=== PATIENT | female | born 1950 | race Caucasian/White ===

== ENCOUNTER 2017-05-03 08:24 | Observation (INO) | payer MEDICARE, SELFPAY ==
[2017-04-27 09:14] LABS: BASOPHILS 0.4 %; BASOPHILS ABSOLUTE 0.02 10/3/uL (0.0-0.16); EOSINOPHILS ABSOLUTE 0.17 10/3/uL (0.0-0.53); IMMATURE GRANULOCYTES 0.7 %; IMMATURE GRANULOCYTES ABSOLUTE 0.04 10/3/uL (0.0-0.11); LYMPHOCYTES 30.1 %; LYMPHOCYTES ABSOLUTE 1.69 10/3/uL (0.67-4.30); MEAN CORPUS HGB CONC 31.1 g/dL (32.0-36.0); MEAN CORPUSCULAR HEMOGLOB 28.5 pg (26.0-34.0); MONOCYTES 9.3 %; MONOCYTES ABSOLUTE 0.52 10/3/uL (0.21-1.20); NEUTROPHILS 56.5 %; NEUTROPHILS ABSOLUTE 3.18 10/3/uL (2.02-8.40); PLATELET COUNT 220 10/3/uL (150-400); RBC DISTRIBUTION WIDTH 15.5 % (12.0-16.0); WHITE BLOOD CELLS 5.6 10/3/uL (4.5-10.5)
[2017-04-27 09:15] LABS: HEMATOCRIT 35.4 % (36.0-48.0); MANUAL DIFF NO %; MEAN CORPUSCULAR VOLUME 91.7 fL (80-100); RED CELL COUNT 3.86 10/6/uL (4.0-5.6)
[2017-04-27 09:33] LABS: A/G RATIO 1.2 (0.7-1.9); ALKALINE PHOSPHATASE 84 U/L (45-117); CHLORIDE, SERUM 106 MMOL/L (96-112); CREATININE 0.94 MG/DL (0.55-1.02); GFR AFRICAN AMERICAN 73 ML/MIN (>=60); GFR NON AFRICAN AMERICAN 63 ML/MIN (>=60); GLUCOSE, SERUM 129 MG/DL (60-99); POTASSIUM, SERUM 4.5 MMOL/L (3.5-5.3); SGOT(AST) 10 U/L (5-40); SGPT(ALT) 11 U/L (5-65); SODIUM, SERUM 146 MMOL/L (135-148); TOTAL BILIRUBIN 0.4 MG/DL (0-1.2); TOTAL PROTEIN 6.7 G/DL (6.0-8.5)
[2017-04-27 09:34] LABS: ALBUMIN 3.7 G/DL (3.5-5.0); BUN (BLOOD UREA NITROGEN) 21 MG/DL (6-23); CO2 (CARBON DIOXIDE) 33 MMOL/L (24-34)
--- NOTE | ~2017-05-03 | OP ---
Record Of Operation [facility] [address] [place]. [address] NAME: HERMINIA DON PALMIRA : 50 STATUS : REG [facility] PAT#: [id number] AGE: 66 ADM/REG DATE : 05/03/17 MR#: [id number] REPORT SERV DATE: 05/03/17 DICTATED BY: GIANCARLO MORRISON III DATE: 05/03/17 REPORT STATUS : Draft TRANSCRIBED BY: MODDonald DATE: 05/03/17 DATE OF PROCEDURE: 05/03/2017 PREOPERATIVE DIAGNOSIS: Biopsy-proven invasive cancer of the right breast. POSTOPERATIVE DIAGNOSIS: Biopsy-proven invasive cancer of the right breast. PROCEDURE: Right simple mastectomy with sentinel lymph node biopsy. ANESTHESIA: General with intubation. COMPLICATIONS: None. ESTIMATED BLOOD LOSS: 10 mL. SPECIMENS: Right breast and sentinel lymph node from right axilla. DRAINS: Vishal-Hearn. LAP AND SPONGE COUNT: Correct x3. BRIEF HISTORY: This 66-year-old female recently was diagnosed with invasive cancer of the right breast. The patient had a palpable mass located in the subareolar region of the right breast. The patient was offered the option of breast conservative therapy versus mastectomy. The pros and cons, advantages and disadvantages of each were discussed with her. It was explained that these were equally acceptable alternatives. The patient choose to have a mastectomy. It was therefore felt that mastectomy with sentinel lymph node biopsy, possible axillary dissection if the sentinel lymph node was positive for malignancy, was indicated. This procedure, the risks, benefits, and alternatives, including but not limited to the risk for bleeding, infection, pain, swelling, scarring, deformity to the area, seroma formation, hematoma formation, nerve injury, chronic paresthesia, pain in the arm, shoulder or axilla, nerve injuries, muscle weakness, or paralysis of muscles of upper back or shoulder, chronic lymphedema of the arm, possible need to return for further surgery, and unforeseen complications including deep venous thrombosis, pulmonary embolus, myocardial infarction, stroke, pneumonia, and were fully explained to the patient prior to the surgery. Her questions were answered. She understood the risks and agreed to the surgery as planned. DESCRIPTION OF PROCEDURE: After being properly identified, and after discussing the risks and benefits of the surgery with the patient and family again in the preoperative area, and after lymphoscintigraphy had been performed per Radiology, the patient was taken to the operating room and placed in the supine position on the operating room table. General anesthesia was administered, and she was intubated without difficulty. The chest, right breast, arm, and axilla were prepped and draped sterilely in the usual fashion. After an appropriate "time-out" per [employer] standards, an elliptical shaped horizontally oriented incision was made centered around the areolar complex of the right breast. The incision was Record Of [address] [address] NAME: HERMINIA DON PALMIRA : 50 STATUS : REG [facility] PAT#: [id number] AGE: 66 ADM/REG DATE : 05/03/17 MR#: [id number] REPORT SERV DATE: 05/03/17 DICTATED BY: GIANCARLO MORRISON III DATE: 05/03/17 REPORT STATUS : Draft TRANSCRIBED BY: DAREN DATE: 05/03/17 continued through the subcutaneous tissue. Hemostasis was controlled with the cautery. Using sharp dissection, superior, inferior, medial, and lateral breast flaps were raised to the edges of the breast. The breast was then removed from the chest wall beginning medially and continuing laterally. The entire breast with the major pectoral fascia was removed. The breast was oriented with sutures, and sent for permanent pathology. Through this same incision, we dissected into the right axilla. Using the navigator probe, we identified a sentinel lymph node. This sentinel lymph node was excised and resected. The ex-vivo 10-second count of this lymph node over 10 seconds was approximately 3800. The background count of the axilla after removal of the sentinel lymph node was essentially 0. The wound was irrigated copiously with saline. Hemostasis was assured. The sentinel lymph node was sent to Pathology, interpreted as being benign with no evidence for malignancy. A Vishal-Hearn drain was then brought through a separate stab wound inferior to the incision placed in the wound. The subcutaneous tissue was closed with interrupted 3-0 Vicryl sutures. The skin was closed with running subcuticular 4-0 Monocryl stitch. The incision was injected with 0.5% Marcaine. Dressings were applied. Anesthesia was reversed. The patient was taken to the recovery room in stable condition. She tolerated the procedure well. Her family was informed the results of the surgery. The patient will remain in the hospital for postoperative care. RHJ/MODL Giancarlo Morrison III, M.D. / [id number] CC: Taty Ny III, M.D.
--- NOTE | ~2017-05-03 | PREOPHP ---
PreOp History and Physical [place] [address] [facility] [place]. [address] NAME: HERMINIA DON PALMIRA : 50 [place]US : [place] [facility] PAT#: [id number] AGE: 66 ADM/REG DATE : MR#: [id number] REPORT SERV DATE: 05/03/17 DICTATED BY: GIANCARLO BOOTH III DATE: 04/10/17 REPORT STATUS : Draft TRANSCRIBED BY: MODDonald DATE: 04/10/17 HISTORY OF PRESENT ILLNESS: This 66-year-old female who comes to the operating room for right mastectomy with sentinel lymph node biopsy and possible axillary node dissection if her sentinel lymph node is positive for malignancy. The patient had a routine mammogram in March of this year. She was found to have a suspicious mass in the central portion of the right breast. The patient has a palpable mass in her right breast, which she noticed in November. She has noticed a firmness and hardness around the nipple. She did not seek medical attention until she had the mammogram. She describes her breast as tender to touch. She has no family history for breast cancer. The patient recently underwent ultrasound-directed core needle biopsy of the lesion of concern in the right breast and was found to be an invasive malignancy. She has elected to have mastectomy as primary treatment for malignancy. She has been offered the option of breast conservative therapy i.e., lumpectomy, but declines this option. She comes now for right mastectomy, sentinel lymph node biopsy, and possible axillary lymph node dissection. PAST MEDICAL HISTORY: 1. Hypertension. 2. Neuropathy of the back. 3. Diabetes mellitus. 4. Transient ischemic attack. 5. History of deep venous thrombosis of the lower extremities. 6. Asthma. 7. Obesity. MEDICATIONS: Amlodipine, Lasix, Januvia, methocarbamol, gabapentin, allopurinol, Zantac, atenolol, levothyroxine, and ProAir. FAMILY HISTORY: Positive for diabetes, heart disease, and bleeding disorder. SOCIAL HISTORY: The patient has a previous history of tobacco use. ALLERGIES: TO ASPIRIN, KEFLEX, ERYTHROMYCIN, SULFA, CORTISONE, PREDNISONE, AND MORPHINE. REVIEW OF SYSTEMS: The patient complains of weight gain, swelling in her hands and feet, back pain, joint pain. Her 14-point review of systems is otherwise unremarkable. PHYSICAL EXAMINATION: GENERAL: She is a very obese female, in no acute distress. She is alert and oriented x3. VITAL SIGNS: Blood pressure 147/74, pulse 64, temperature 97.3. HEENT: Remarkable for a large right thyroid lobe. It is diffusely, symmetrically enlarged. There is no adenopathy in neck. Supraclavicular area is normal with no adenopathy. LUNGS: Clear. CARDIAC: Normal. BREASTS: Exam of the breasts reveals a superficial subareolar mass in the right breast. This is about 1.5 cm in size involving the nipple-areolar complex. There is no nipple PreOp History and Physical [address] [address] NAME: HERMINIA DON PALMIRA : 50 STATUS : [place] [facility] [place]#: [id number] AGE: 66 ADM/REG DATE : MR#: [id number] REPORT SERV DATE: 05/03/17 DICTATED BY: GIANCARLO BOOTH III DATE: 04/10/17 REPORT STATUS : Draft TRANSCRIBED BY: DAREN DATE: 04/10/17 discharge, and no inversion noted. The right axilla is normal with no adenopathy. The left breast is unremarkable with no palpable masses or nodules. Left nipple is normal without discharge. Left axilla is normal with no adenopathy. The patient was examined in both supine and sitting positions. EXTREMITIES: Unremarkable. LABORATORY DATA: Recent core needle biopsy of the mass concerning the right breast reveals a grade 1 invasive ductal carcinoma, ER positive, WA negative, HER not over expressed. Recent ultrasound of the right breast shows a 13 mm retroareolar right breast mass, contagious to the underside of the nipple areolar complex, suspicious for malignancy. Recent bilateral mammogram showed the same. ASSESSMENT: 1. This is a 66-year-old female with biopsy-proven invasive cancer of the subareolar region of the right breast. 2. Hypertension. 3. History of transient ischemic attack. 4. Deep venous thrombosis. 5. Obesity. 6. Diabetes mellitus. 7. Asthma. PLAN: The patient comes to the operating room for right mastectomy with sentinel lymph node biopsy and possible axillary lymph node dissection. This procedure, the risks, benefits, and alternatives including but not limited to the risk for bleeding, infection, pain, swelling, scarring, deformity to the area, seroma formation, hematoma formation, nerve injury, chronic paresthesia, pain in the arm, shoulder, or axilla, nerve injury with muscle weakness or paralysis of muscles of upper back or shoulder, chronic lymphedema of the arm, and unforeseen complications including deep venous thrombosis, pulmonary embolus, myocardial infarction, stroke, pneumonia, and , have been explained to the patient fully prior to surgery. The option of breast conservative therapy has been offered but declined. The patient's questions have been answered. She clearly understands the risks and agrees to surgery as planned. The increased risk of bleeding because the use of Coumadin has been explained as well as increased risk for thromboembolic complications while this medication is held. RHJ/MODL Giancarlo Booth III, M.D. / [id number]
[~2017-05-03 08:24] MED LIST: ACET500CAP PO; ATEN50 PO; C5 PO; CINNAMONPO PO; CYANO1000T PO; FIBER GUMMY PO; GLUCOPHXR PO; GLUCOTROL5 PO; GLUCPH PO; JANTOVEN5 MG PO; JANUVIA100 MG PO; KDUR10 PO; KLOR-CON M1010 MEQ PO; L80 PO; LEVOTHYROXIN50 MCG PO; LISINOPRIL40 MG PO; LOTE20 PO; MAX25 PO; METHOC750B PO; NEUR300 PO; NORV10 PO; NORV5 PO; PROAIR HFA INH; PROBIOTIC PO; PROVHFA INH; QVAR 80 MCG80 MCG INH; VITE PO; Z100 PO; Z300 PO; ZANTAC 150 PO; ZANTAC150 MG PO; [UNRECOGNIZED DRUG - OTHER] PO
[2017-05-03 11:25] LABS: INTERNATIONAL NORMAL RATI 1.2 UNITS (-)
[2017-05-03 11:26] LABS: PROTIME (NOT ORD) 14.9 SEC (12.0-14.5)
[2017-05-04 07:56] LABS: BASOPHILS 0.2 %; BASOPHILS ABSOLUTE 0.01 10/3/uL (0.0-0.16); EOSINOPHILS 1.6 %; HEMATOCRIT 33.4 % (36.0-48.0); HEMOGLOBIN 10.4 g/dL (12.0-16.0); IMMATURE GRANULOCYTES 0.3 %; IMMATURE GRANULOCYTES ABSOLUTE 0.02 10/3/uL (0.0-0.11); LYMPHOCYTES 29.7 %; LYMPHOCYTES ABSOLUTE 1.86 10/3/uL (0.67-4.30); MEAN CORPUS HGB CONC 31.1 g/dL (32.0-36.0); MEAN CORPUSCULAR HEMOGLOB 28.2 pg (26.0-34.0); MEAN CORPUSCULAR VOLUME 90.5 fL (80-100); MEAN PLATELET VOLUME 9.2 fL (9.2-13.0); MONOCYTES 7.5 %; MONOCYTES ABSOLUTE 0.47 10/3/uL (0.21-1.20); NEUTROPHILS 60.7 %; PLATELET COUNT 196 10/3/uL (150-400); RBC DISTRIBUTION WIDTH 15.4 % (12.0-16.0); RED CELL COUNT 3.69 10/6/uL (4.0-5.6); WHITE BLOOD CELLS 6.3 10/3/uL (4.5-10.5)
[2017-05-04 07:57] LABS: MANUAL DIFF NO %
[2017-05-04 08:02] LABS: INTERNATIONAL NORMAL RATI 1.2 UNITS (-); PROTIME (NOT ORD) 14.8 SEC (12.0-14.5)
[2017-05-04 08:07] LABS: BUN (BLOOD UREA NITROGEN) 25 MG/DL (6-23); CALCIUM, SERUM 8.5 MG/DL (8.5-10.4); CHLORIDE, SERUM 107 MMOL/L (96-112); CO2 (CARBON DIOXIDE) 31 MMOL/L (24-34); CREATININE 1.11 MG/DL (0.55-1.02); GFR AFRICAN AMERICAN 60 ML/MIN (>=60); GFR NON AFRICAN AMERICAN 52 ML/MIN (>=60); GLUCOSE, SERUM 142 MG/DL (60-99); POTASSIUM, SERUM 4.2 MMOL/L (3.5-5.3); SODIUM, SERUM 142 MMOL/L (135-148)
[2017-05-04] MEDS ORDERED: PERCOCET 7.5/321 TAB PO (10:15)
== END 2017-05-04 11:39 | disposition home or self-care (01) ==
LOC: SDC 08:24 → 5SO 15:27
PROVIDERS: Surgery
PROC: 07B50ZX Excision of Right Axillary Lymphatic, Open Approach, Diagnostic (ICD-10-PCS; 2017-05-03)
PROC: 0HTT0ZZ Resection of Right Breast, Open Approach (ICD-10-PCS; principal; 2017-05-03 12:45)
DX: C77.3 Secondary and unspecified malignant neoplasm of axilla and upper limb lymph nodes (principal); C50.111 Malignant neoplasm of central portion of right female breast; G89.29 Other chronic pain; M10.9 Gout, unspecified; I10 Essential (primary) hypertension; K21.9 Gastro-esophageal reflux disease without esophagitis; Z86.718 Personal history of other venous thrombosis and embolism; J45.909 Unspecified asthma, uncomplicated; D64.9 Anemia, unspecified; E66.01 Morbid (severe) obesity due to excess calories; Z68.39 Body mass index [BMI] 39.0-39.9, adult; Z79.01 Long term (current) use of anticoagulants; E11.40 Type 2 diabetes mellitus with diabetic neuropathy, unspecified; Z86.73 Personal history of transient ischemic attack (TIA), and cerebral infarction without residual deficits; Z82.49 Family history of ischemic heart disease and other diseases of the circulatory system; Z83.3 Family history of diabetes mellitus; Z87.891 Personal history of nicotine dependence; Z79.899 Other long term (current) drug therapy; Z88.6 Allergy status to analgesic agent; Z88.1 Allergy status to other antibiotic agents; Z88.2 Allergy status to sulfonamides; Z88.5 Allergy status to narcotic agent
CPT/HCPCS: 71020; 78195; 80048; 80053; 82962; 85025; 85610; 88307; 88333; 88334; 88342; 93005; A9270-GY; A9541; G0378; J0360; J0690; J1170; J2250; J2405; J2710; J3010